=== PATIENT | female | born 1980 | race African-American/Black ===

== ENCOUNTER 2020-11-17 12:46 | Emergency (ER) | payer SELFPAY ==
[~2020-11-17] VITALS: Ht 162.6 cm; Wt 96.0 kg
[2020-11-17] MEDS ORDERED: MORPHINE SULFATE 4 MG/ML CPJ (NOT FOR IM USE) IV ONE (13:30)
[2020-11-17] MEDS ORDERED: HYDR-4346 MT (16:20)
[2020-11-17 17:30] VITALS: BP 145/80
== END 2020-11-17 17:24 | disposition home or self-care (01) ==
LOC: ER 12:46
DX: S82.832A Other fracture of upper and lower end of left fibula, initial encounter for closed fracture (principal); I10 Essential (primary) hypertension; W10.8XXA Fall (on) (from) other stairs and steps, initial encounter; Y93.89 Activity, other specified; Y92.89 Other specified places as the place of occurrence of the external cause; F12.90 Cannabis use, unspecified, uncomplicated; Z88.5 Allergy status to narcotic agent
CPT/HCPCS: 29515; 73610; 93005; 96374; 99283; J2270